=== PATIENT | male | born 1970 | race Two or more races ===

== ENCOUNTER 2025-01-28 01:43 | Emergency (ER) | payer OTHER ==
[~2025-01-28] VITALS: Ht 170.2 cm; Wt 84.0 kg
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
[2025-01-28] MEDS ORDERED: TIZA-142 PO (04:04)
[2025-01-28] MEDS ORDERED: METH4PAK PO (04:04)
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
[2025-01-28 04:40] VITALS: BP 141/66; PULSE 54; RESP 20; TEMP 98.1; O2SAT 98
[2025-01-28] MEDS: HYDROcodone-ACET 5/325MG TAB PO ONE (04:42)
[2025-01-28] MEDS: KETOROLAC TROMETH 60MG/2ML VIAL IM ONE (04:42)
== END 2025-01-28 04:50 | disposition home or self-care (01) ==
LOC: ER 01:43 → EDBD 01:43 → ER 04:50
DX: S13.4XXA Sprain of ligaments of cervical spine, initial encounter (principal); S46.912A Strain of unspecified muscle, fascia and tendon at shoulder and upper arm level, left arm, initial encounter; S00.83XA Contusion of other part of head, initial encounter; V43.52XA Car driver injured in collision with other type car in traffic accident, initial encounter; Y93.89 Activity, other specified; Y92.410 Unspecified street and highway as the place of occurrence of the external cause; Y99.8 Other external cause status
CPT/HCPCS: 72040; 73030; 96372; 99284; J1885